=== PATIENT | male | born 1980 | race Caucasian/White ===

== ENCOUNTER → 2019-10-07 11:45 | Outpatient (CLI) | payer OTHER, SELFPAY ==
--- NOTE | ~2019-10-07 | CT_ITS ---
EXAMINATION: CT abdomen pelvis w con DATE: 10/07/2019 12:11 INDICATION: Periumbilical abdominal pain, right-sided abdominal pain TECHNIQUE: Computed tomography (CT) of the abdomen and pelvis was performed with 100 cc Omnipaque 350 intravenous contrast. Automated exposure control and iterative reconstruction technique were employe d. Exam dose: 632.13 mGy-cm total exam DLP. COMPARISON: None. FINDINGS: The lung bases are clear. Heart size is normal. No pericardial or pleural effusion. The liver, spleen, pancreas, and adrenal glands are unremarkable. The gallbladder is present. No bile duct or pancreatic duct dilatation. 7 mm right renal cyst. Bilateral nonobstructive nephrolithiasis; there are 2 approximately 5 mm and 3 mm nonobstructing right kidney stones and 8 pinpoint and an debi roximately 2.6 mm left renal calculi. No ureteral calculus or hydroureteronephrosis. The urinary blad abel is relatively evacuated. Prostate gland and seminal vesicles are unremarkable. Normal caliber of the abdominal aorta. No intraperitoneal or retroperitoneal or pelvic mass lesion or adenopathy or ascites. Normal appendix. No bowel obstruction or intraperitoneal free air. Very small fat-containing umbilical hernia. Included skeletal structures are unremarkable. IMPRESSION: Bilateral nonobstructive nephrolithiasis 7 mm right renal cyst Normal appendix Reviewed, dictated and finalized at [facility]. Reviewed, dictated and finalized at [facility].
== END ==
DX: N28.1 Cyst of kidney, acquired (principal); N20.0 Calculus of kidney
CPT/HCPCS: 74177; Q9967

== ENCOUNTER 2022-12-12 11:00 | Outpatient (CLI) | payer OTHER, SELFPAY | END 2022-12-12 11:01 | disposition home or self-care (01) | PROVIDERS: Visit Provider Urology | DX: N20.1 Calculus of ureter (principal) | CPT/HCPCS: 87086 ==

== ENCOUNTER 2022-12-20 00:34 | Day surgery (SDC) | payer OTHER, SELFPAY ==
[2022-12-12 09:56] VITALS: BMI 23.7
--- NOTE | 2022-12-12 10:00 | PC.NURSE ---
Report to the Outpatient Waiting Room, entrance under the green pavilion located off [facility], at time 0830 on date 12/20/22. Planned Procedure Time: 1030. Time changes happen often and if your time is changed the preop area will call you the afternoon before. - You and your visitor will be asked to self-screen and do not enter if you have any COVID symptoms. - A mask is optional within the hospital at this time. Patients may have clear liquids (water, carbonated beverages, clear teas, apple juice) until 3 hours prior to surgery with a maximum of 20 ounces. - No food from midnight until time of surgery Take the following medications with a SIP of water the morning of surgery: N/A DO NOT STOP ANY OF YOUR OTHER PRESCRIPTION MEDICATIONS PRIOR TO SURGERY EXCEPT THE FOLLOWING Medications to discontinue per physician: VITAMINS/SUPPLEMENTS Date to take last dose: 12/16/22 Please no make-up, nail ugandan, hairspray, perfume, deodorant, or body powder the day of surgery. No jewelry (including any body piercings) or valuables the day of surgery, leave them at home. Please take a shower or bath the night before, or the morning of, surgery with an antibacterial soap. Wear comfortable, loose fitting clothing. - Jewelry must be removed prior to entering the operating room. Rings and piercings that are not removed may be cut off. - The hospital will not accept responsibility for valuables. - Please leave all valuables, including medications, at home the day of surgery. If you are going home after surgery, a licensed double bottom driver must drive you home. - NO public transportation without another adult if you receive anesthesia. - We recommend that an adult stay with you for 24 hours following discharge. - We also recommend that you do not drive, make important decision, drink alcoholic beverages, or take any drugs that were not prescribed by your health care provider for at least 24 hours after your discharge time. Follow any additional instructions given to you from your surgeon. If you or anyone in your household have experienced Covid symptoms in the past week, please notify your surgeon or the nurse liaison at the phone number below for possible testing. Telephone instructions given to PT - DARIELA MENDOZA and asked if any additional questions and then verbalized understanding. Patient advised to call surgeon office or pre surgery nurse liaison [phone] if any additional questions.
--- NOTE | ~2022-12-20 | CT_ITS ---
EXAMINATION: CT abdomen pelvis wo con DATE: 12/20/2022 08:12 INDICATION: Renal stone. TECHNIQUE: Computed tomography (CT) of the abdomen and pelvis was performed without intravenous contr ast. Automated exposure control and iterative reconstruction technique were employed. The dose-length product was 210.10 mGy-cm. COMPARISON: CT abdomen and pelvis 10/07/2019 FINDINGS: The visualized portions of the lung bases demonstrate minimal atelectasis on the left. No p leural effusion. The heart size is normal. No pericardial effusion. There is a small sliding hiatal h ernia. The liver, gallbladder, spleen, pancreas, and adrenal glands are normal. There is a 1 mm stone in right kidney. There is a 2 mm stone in left kidney. There are no dilated loops of bowel. The appe ndix is normal. There are no pathologically enlarged lymph nodes. There is no free intraperitoneal fl uid. There is mild thoracic and lumbar spondylosis. IMPRESSION: 1. Small bilateral nonobstructing kidney stones. Reviewed, dictated and finalized at [facility].
[2022-12-20 07:41] VITALS: BP 149/76; PULSE 57; RESP 16; TEMP 36.4; O2SAT 99
[2022-12-20] MEDS: LACTATED RINGERS 1,000 ML 30 ML IV CONT (08:01)
--- NOTE | 2022-12-20 08:09 | SUR.PREOP ---
PT TO CT PER WHEEL CHAIR
--- NOTE | 2022-12-20 08:14 | SUR.PREOP ---
PT RETURNED FROM CT PER WHEELCHAIR
--- NOTE | 2022-12-20 08:26 | P.PNAN_ITS ---
Anes - Initial Pre Proc Eval Procedure: Operation Date: 12/20/22 10:00 Proposed Procedures p Cystoscopy, Left Ureteroscopy, Left Retrograde Pyelogram, Possible Left Stone Extraction, Possible Left Stent Placement, Possible Holmium Laser - Mc Aldrich MD Date/Time: 12/20/22 08:26 Surgeon: Mc Aldrich MD Pre Op Diagnosis: left ureteral stone Patient Data Age: 42 Gender: M Height: 1.91 m Weight: 86.1 kg Last Vital Signs Temp 36.4 C 12/20/22 07:41 Pulse 57 L 12/20/22 07:41 Resp 16 12/20/22 07:41 BP 149/76 H 12/20/22 07:41 Pulse Ox 99 12/20/22 07:41 O2 Del Method Room Air 12/20/22 07:41 Allergies Allergy/AdvReac Type Severity Reaction Status Date / Time propoxyphene AdvReac Severe Nausea and Verified 12/12/22 09:54 [From Mariah-Evie] Vomiting Home Medications Medication Instructions Recorded Confirmed Type Lactobacillus 1 cap PO DAILY 12/12/22 12/12/22 History acidophilus-Bifidobac.animalis 2.5 billion cell capsule (Daily Probiotic) inulin 2 gram chewable tablet 2 g PO DAILY 12/12/22 12/12/22 History (Fiber Gummies) multivitamin 1 tablet PO DAILY 12/12/22 12/12/22 History omega 6-kkx-nsb-fish oil 1,000 mg 1 cap PO DAILY 12/12/22 12/12/22 History (120 mg-180 mg) capsule (Fish Oil) Patient hx anesthesia problems: none Family hx anesthesia problems: none Results Review: All pre-operative results and documents have been reviewed as part of the pre- operative evaluation. [facility] Surgical History Surgical History (Updated 12/20/22 @ 08:26 by Bob Tovar MD) H/O hernia repair Social History Social History Smoking status: Never smoker Alcohol intake: current Drinks per week: 3 Substance use: never Substance use type: does not use Living arrangements: with family Spiritual care concerns: No Anes - Eval Final PreProcedure Day of Procedure 12/20/22 08:26 Patient weight: normal Heart: regular rate and rhythm Lungs: clear to auscultation Airway: Mallampati scale class II Neurological: alert and oriented Last oral intake: >/= 8 hours ASA classification: II Emergent: no Anesthetic plan: proceed Anesthesia type and monitoring: general LMA and standard monitoring Results Review: All pre-operative results and documents have been reviewed as part of the pre- operative evaluation. Informed Consent: The patient's anesthetic plan and its attendant risks and benefits were discussed with the patient/family/POA. Questions were solicited and answers provided to the satisfaction of the patient/family/POA.
--- NOTE | 2022-12-20 09:35 | SUR.PREOP ---
3539 DR. ESTEBAN SPOKE WITH PT, PROCEEDURE CANCELLED TODAY.
== END 2022-12-20 09:50 | disposition home or self-care (01) ==
PROVIDERS: Visit Provider Urology
PROC: (CPT 52352; principal; 2022-12-20 10:00)
DX: N20.0 Calculus of kidney (principal); Z53.8 Procedure and treatment not carried out for other reasons
CPT/HCPCS: 74176; 99212; G0463; J7120